=== PATIENT | male | born 1965 | race Caucasian/White ===

== ENCOUNTER 2023-03-29 12:29 | Day surgery (SDC) | payer OTHER ==
[~2023-03-29] VITALS: Ht 182.9 cm; Wt 120.3 kg
[~2023-03-29 12:29] MED LIST: BAYE81TA10 PO; C-101TAB PO; CIDA500T2 PO; GINK1CAP PO; LISI10TA22 PO; OMEGCAP4 PO; nugenix PO
[2023-03-29] MEDS ORDERED: LR 1,000 ML IV SCH ×3 (12:55→18:00)
[2023-03-29] MEDS ORDERED: fentaNYL 100 MCG/2 ML INJECTION As Ordered ONE (15:36)
[2023-03-29] MEDS ORDERED: SUGAMMADEX SODIUM 500 MG/5 ML VIAL (BRIDION) As Ordered ONE (15:36)
[2023-03-29] MEDS ORDERED: MIDAZOLAM INJ 2MG/2ML VIAL As Ordered ONE (15:36)
[2023-03-29] MEDS ORDERED: ONDANSETRON 4MG 2ML VIAL As Ordered ONE (15:36)
[2023-03-29] MEDS ORDERED: propofoL 200 MG/20 ML VIAL As Ordered ONE (15:36)
[2023-03-29] MEDS ORDERED: ROCURONIUM BROMIDE 50MG/5ML VIAL As Ordered ONE (15:36)
[2023-03-29] MEDS ORDERED: LIDOCAINE 2% 100MG/5ML SDV (FOR ANES.) As Ordered ONE (15:36)
[2023-03-29] MEDS ORDERED: LIDOCAINE W/EPINEPHRINE 1% 20ML VIAL As Ordered ONE (15:38)
[2023-03-29] MEDS ORDERED: CLINDAMYCIN 900MG/6ML VIAL As Ordered ONE (16:04)
[2023-03-29] MEDS ORDERED: ACETAMINOPHEN 1000MG 100ML IV BAG As Ordered ONE (16:11)
[2023-03-29] MEDS ORDERED: ONDANSETRON 4MG 2ML VIAL IV PRN (16:30)
[2023-03-29] MEDS ORDERED: fentaNYL 100 MCG/2 ML INJECTION IV PRN (16:30)
[2023-03-29 17:10] VITALS: BP_DIAS 81
[2023-03-29 17:30] VITALS: BP_SYST 144; TEMP 96.9; O2SAT 95
[2023-03-29] MEDS ORDERED: HYDROcodone/APAP LIQUID 7.5-325MG 15ML UDC (LORTAB ELIXIR) PO PRN (18:05)
== END 2023-03-29 17:37 | disposition home or self-care (01) ==
LOC: M SDC 12:29
PROVIDERS: ATTEND Otolaryngology
DX: K14.8 Other diseases of tongue (principal); E11.9 Type 2 diabetes mellitus without complications; G47.30 Sleep apnea, unspecified; Z79.82 Long term (current) use of aspirin; Z79.899 Other long term (current) drug therapy; Z85.828 Personal history of other malignant neoplasm of skin
CPT/HCPCS: 41112; 88305; J0131; J0736; J1100; J2250; J2405; J3010